=== PATIENT | female | born 2000 | race Two or more races ===

== ENCOUNTER 2020-05-05 20:08 | Emergency (ER) | payer OTHER ==
--- NOTE | 2020-05-05 20:17 | PDOC ---
Attending Attestation - Resident Resident Name: Rozina Greenfield - ED Attending Attestation I have performed the following: I have examined & evaluated the patient, The case was reviewed & discussed with the resident, I agree w/resident's findings & plan - HPI HPI: 05/05/20 23:41 see resident hpi - Physicial Exam PE: 05/05/20 23:42 see resident exam - Critical Care Time Total Critical Care Time: 60 Critical Care Statement: The care of this patient involved high complexity decision making to prevent further life threatening deterioration of the patient's condition and/or to evaluate & treat vital organ system(s) failure or risk of failure. - Medical Decision Making 05/05/20 23:44 19-year-old female with history of cerebral palsy from a long-term care residential/usp facility with vomiting and possible aspiration Due to absent breath sounds on the right side patient was decompressed with a 20-gauge catheter in route by EMS Pneumothorax confirmed with CT scan of the chest CT of the abdomen and pelvis showed multiple areas of dilated bowel with possible small bowel malrotation A 20 Greek chest tube was placed, placement confirmed with chest x-ray Patient is currently saturating 100% on 3 L nasal cannula She will be transferred to [facility] after discussion with in- house surgery due to patient's size as well as for continuity of care due to previous relationship with the other facility Patient's father was contacted as well Discharge - Discharge Information Problems reviewed: Yes Clinical Impression/Diagnosis: Malrotation of intestine, Tension pneumothorax Condition: Improved Disposition: TRANSFER ACUTE CARE/OTHER HOSP - Follow up/Referral - Patient Discharge Instructions - Post Discharge Activity
--- NOTE | 2020-05-05 20:27 | PDOC ---
History of Present Illness - General Stated Complaint: DECOMPRESSION Time Seen by Provider: 05/05/20 20:17 - History of Present Illness Initial Comments: 05/05/20 20:57 19 year old woman from [place] with a history of asthma, chronic constipation,epilepsy, congenital hypotonia, developmental delay/MR, PDA at (s/p coil embolization), Frontal lobe atrophywith septum pellucidum who presents with hypotension and hypoxia after an episode of coffee ground emesis. Upon EMS arrival the patient had decreased breath sounds on the R and the patient was needle decompressed with improvement in saturation and blood pressure. ROS - unable to obtain 2/2 delay PE GENERAL: Awake, alert HEAD: No signs of trauma, normocephalic, atraumatic EYES: EOMI, sclera anicteric, conjunctiva clear ENT: oropharynx clear without exudates. Moist mucosa NECK: Normal ROM, supple LUNGS: No distress, clear to auscultation bilaterally HEART: Regular rate and rhythm, normal S1 and S2, no murmurs, rubs or gallops, peripheral pulses normal and equal bilaterally. ABDOMEN: Soft, nontender, G tube intact, No guarding, no rebound. No masses EXTREMITIES : small and moderately contracted extremities NEUROLOGICAL: unable to assess SKIN: Warm, Dry, normal turgor, no rashes or lesions noted Assessment and Plan 19 year old woman from [place] with a history of asthma, chronic constipation,epilepsy, congenital hypotonia, developmental delay/MR, PDA at (s/p coil embolization), Frontal lobe atrophywith septum pellucidum who presents with hypotension and hypoxia after an episode of coffee ground emesis. Upon arrival patient satting 97 on RA and normotensive. Placed on 2L NC for comfort Needle removed from chest and dressed with 3 way occlusive dressing Patient remaining at 100% O2 CXR: small R apical ptx Dr. Sen from [place] called to recieve update, up to date information relayed. Physician recommends that if transfer necessary prefers [facility] for her care. CT chest: with small to moderate R sided ptx CT abd/pelvis: diffuse colonic distention with possible small bowel malrotation order desk caller surgeon recommends transfer to [facility] pending labs and transfer Patient signed out to resident Dr. Candace Greenfield, PGY2 Emergency Medicine Past History - Medical History Allergies/Adverse Reactions: Allergies Allergy/AdvReac Type Severity Reaction Status Date / Time ceftriaxone Allergy Verified 05/05/20 23:10 cephalexin Allergy Verified 05/05/20 23:10 sulfamethoxazole Allergy Verified 05/05/20 23:10 [From Bactrim] trimethoprim [From Bactrim] Allergy Verified 05/05/20 23:10 ED Treatment Course - LABORATORY CBC & Chemistry Diagram: 05/05/20 21:31 05/05/20 21:31 Discharge - Discharge Information Problems reviewed: Yes Clinical Impression/Diagnosis: Malrotation of intestine, Tension pneumothorax Condition: Improved Disposition: TRANSFER ACUTE CARE/OTHER HOSP - Follow up/Referral - Patient Discharge Instructions - Post Discharge Activity
--- NOTE | 2020-05-05 20:32 | PDOC ---
ED Treatment Course - LABORATORY CBC & Chemistry Diagram: 05/05/20 21:31 05/05/20 21:31 - RADIOLOGY Radiology Studies Ordered: Category Date Time Status CHEST X-RAY PORTABLE* [RAD] Stat Radiology 05/05/20 20:11 Taken Medical Decision Making - Medical Decision Making Tien patients father - [phone] - Been very healthy for the past 6 months. Uses a mask for sleeping (CPAP). - Got a call from nurse who said that all of a sudden the patient had a collapsed lung at [place] and EMS had to needle decompress. - Nurse was vague, had issues in the past with lung issues (Multiple episodes of PNA greater than 1 year ago), been in [place] for a few months. - Has a significant amount of medical history - Not verbal, developmentally delayed. All feeding through G-tube, needs regular nursing for support, 100% dependent on help. - Father's biggest concern is the daughter picking up COVID. Father believes this would be a " sentence" - Can tell when she is not feeling well or cranky or in pain bc she will cry. If she is feeling well she is a "delightful person and truly smiles and likes people" 05/05/20 20:34 Father made aware of potential need for chest tube vs pig tail - Gives oral consent over the phone Surgical Consult: I spoke with Dr. Ac who agrees and believes this would be a very complicated situation given the patients body habitus and medical history. Considering all of her medical care is generally done at [facility] he recommends transferring this patient over the [facility] for definitive tertiary care. 05/05/20 22:04 Transfer process to [facility] being initiated Accepting surgical physician Dr. Oliveira - Dr. Oliveira said considering the patient has a pneumothorax and a needle decompression in the chest he reccommends putting in a chest tube or pigtail in case the patient decompensates on the way. He reports they will need to intubate this patient during any surgical procedure and considering the patient has a needle decompression and will likely be intubated a chest tube is necessary. - 20 armenian chest tube placed under sterille conditions. 05/05/20 23:48 I have called Tien the patients father to obtain consent for transfer and he agrees [facility] is the best place for her to go given that her prior care is at [facility] and this is the best option for continuity of care. - Father also informed about chest tube procedure and was glad to hear her vitals are presently within normal limits and that the patient is resting comfortably on the bed Discharge - Discharge Information Problems reviewed: Yes Clinical Impression/Diagnosis: Malrotation of intestine, Tension pneumothorax Condition: Improved Disposition: TRANSFER ACUTE CARE/OTHER HOSP - Admission No - Follow up/Referral - Patient Discharge Instructions - Post Discharge Activity - Transfer to Acute Care Facility Receiving Facility Name: [facility] Accepting Physician:: Dr. Oliveira Procedures - Chest Tube 4th ICS Hungarian Tube Size(cm): 20(child) Anesthesia: other (0.5% Bupivicaine) Volume(ml): 5 Sterile Draping: Yes Sterile Technique: Yes [place] of Air Kimball: Yes Vaseline Gauze Dressing: Yes Suction: Yes Curved Clamp: Yes Tube Sutured to Skin: Yes Complications: No Post Procedure CXR: Yes
[2020-05-05 21:13] VITALS: TEMP 97.7; BMI 19.8
[2020-05-05 21:46] LABS: BASO % 0.3 % (0-2.0); EOS % 0.1 % (0-4.5); HEMATOCRIT 45.7 % (32.4-45.2); LYMPH % 10.7 % (8-40); MCH 30.2 pg (25.7-33.7); MCHC 32.7 g/dl (32.0-36.0); MEAN CELL VOLUME 92.1 fl (80-96); MEAN PLT VOLUME 7.7 fl (7.5-11.1); MONO % 2.6 % (3.8-10.2); NEUT % 86.3 % (42.8-82.8); PLATELET COUNT 530 K/MM3 (134-434); RBC 4.97 M/mm3 (3.60-5.2); RDW 15.4 % (11.6-15.6); WHITE BLOOD COUNT 8.4 K/mm3 (4.0-10.0)
[2020-05-05 21:54] LABS: INR 1.01 (0.83-1.09); PROTHROMBIN TIME (PATIENT) 11.9 SEC (9.7-13.0)
--- NOTE | 2020-05-05 22:09 | PDOC ---
*Physical Exam - Vital Signs Last Vital Signs Temp Pulse Resp BP Pulse Ox 97.7 F 109 H 17 103/75 100 05/05/20 21:07 05/05/20 21:07 05/05/20 21:07 05/05/20 21:07 05/05/20 21:07 - Physical Exam 05/05/20 22:05 Dr. Oliveira - surgery attending ED Treatment Course - LABORATORY CBC & Chemistry Diagram: 05/05/20 21:31 05/05/20 21:31 - ADDITIONAL ORDERS Additional order review: Laboratory Results 05/05/20 21:31 PT with INR 11.90 INR 1.01 05/05/20 21:31 RBC 4.97 MCV 92.1 MCHC 32.7 RDW 15.4 MPV 7.7 Neutrophils % 86.3 H D Lymphocytes % 10.7 D Monocytes % 2.6 L Eosinophils % 0.1 D Basophils % 0.3
[2020-05-05 22:14] LABS: BILIRUBIN,TOTAL 0.2 mg/dL (0.2-1); BLOOD UREA NITROGEN 19.2 mg/dL (7-18); CALCIUM 10.5 mg/dL (8.5-10.1); CREATININE 0.9 mg/dL (0.55-1.3); POTASSIUM 4.1 mmol/L (3.5-5.1); TOT PROT 8.8 g/dl (6.4-8.2)
[2020-05-05] MEDS ORDERED: BUPIVACAINE HCL/PF 0.5% (5 MG/ML) 30 ML VIAL IJ ONE (22:35)
[2020-05-05] MEDS ORDERED: fentaNYL CITRATE/PF 1,000 MCG/20 ML AMPUL IVPUSH ONE (22:35)
[2020-05-05] MEDS ORDERED: PIPERACILLIN/TAZOB 3.375 GM 3.375 GM in DEXTROSE 5%-WATER - 50 ML IVPB ONE (23:09)
[2020-05-05] MEDS ORDERED: PIPERACILLIN/TAZOB 3.375 GM 3.375 GM/50 ML BAG IVPB ONE (23:44)
[2020-05-06 00:36] VITALS: BP 110/88; PULSE 118
[2020-05-06] MEDS ORDERED: fentaNYL CITRATE/PF 1,000 MCG/20 ML AMPUL IVPUSH ONE (00:41)
--- NOTE | 2020-05-06 10:36 | EKG ---
Test Reason : Blood Pressure : / mmHG Vent. Rate : 115 BPM Atrial Rate : 115 BPM P-R Int : 142 ms QRS Dur : 082 ms QT Int : 342 ms P-R-T Axes : 057 -45 031 degrees QTc Int : 473 ms SINUS TACHYCARDIA LEFT AXIS DEVIATION ABNORMAL ECG NO PREVIOUS ECGS AVAILABLE Confirmed by Ben Wright MD ([id number]) on 05/06/2020 10:36:14 AM Referred By: Confirmed By:Ben Wright MD
== END 2020-05-06 00:54 | disposition short-term general hospital (02) ==
LOC: JER 20:08
PROC: 3E03329 Introduction of Other Anti-infective into Peripheral Vein, Percutaneous Approach (ICD-10-PCS; principal; 2020-05-05)
PROC: 3E033GC Introduction of Other Therapeutic Substance into Peripheral Vein, Percutaneous Approach (ICD-10-PCS; 2020-05-05)
DX: Q43.3 Congenital malformations of intestinal fixation (principal); J93.0 Spontaneous tension pneumothorax
CPT/HCPCS: 36415; 71045-TC-FY; 71250-TC; 74176-TC; 80053; 82550; 83605; 84484; 85025; 85610; 86850; 86900; 86901; 87040; 93005; 93010; 96365; 96375; 99285-25

== ENCOUNTER 2020-12-17 12:51 | Emergency (ER) | payer OTHER ==
[2020-12-17 13:44] VITALS: BMI 24.4
[2020-12-17 14:08] VITALS: TEMP 98
[2020-12-17] MEDS ORDERED: SODIUM CHLORIDE 0.9% 500 ML INFUS.BAG IV ONE ×2 (14:27→20:03)
[2020-12-17 15:48] LABS: BASO % 0.9 % (0-2.0); EOS % 0.9 % (0-4.5); HEMATOCRIT 33.8 % (32.4-45.2); HEMOGLOBIN 11.5 GM/dL (10.7-15.3); LYMPH % 38.6 % (8-40); MCH 31.3 pg (25.7-33.7); MEAN CELL VOLUME 92.1 fl (80-96); MEAN PLT VOLUME 7.1 fl (7.5-11.1); MONO % 8.2 % (3.8-10.2); NEUT % 51.4 % (42.8-82.8); PLATELET COUNT 535 K/MM3 (134-434); RBC 3.67 M/mm3 (3.60-5.2); WHITE BLOOD COUNT 5.2 K/mm3 (4.0-10.0)
[2020-12-17 15:55] LABS: INR 1.09 (0.83-1.09); PROTHROMBIN TIME (PATIENT) 13.2 SEC (9.7-13.0)
[2020-12-17 15:58] LABS: ACTIVATED PTT 36.3 SECONDS (25.2-36.5)
[2020-12-17 16:06] LABS: CHLORIDE 101 mmol/L (98-107); POTASSIUM 3.5 mmol/L (3.5-5.1); SODIUM 138 mmol/L (136-145)
[2020-12-17 16:08] LABS: CALCIUM 8.1 mg/dL (8.5-10.1)
[2020-12-17 16:09] LABS: ALBUMIN 2.5 g/dl (3.4-5.0); ANION GAP 2 MMOL/L (8-16); CO2 35 mmol/L (21-32); GLUCOSE,RANDOM 81 mg/dL (74-106)
[2020-12-17 16:12] LABS: CREATININE 0.3 mg/dL (0.55-1.3); SGOT/AST 16 U/L (15-37); SGPT/ALT 23 U/L (13-61)
[2020-12-17 16:13] LABS: BILIRUBIN,TOTAL 0.2 mg/dL (0.2-1)
[2020-12-17 16:14] LABS: TOT PROT 5.7 g/dl (6.4-8.2)
[2020-12-17 16:15] LABS: ALK PHOS 89 U/L (45-117)
[2020-12-17 16:16] LABS: LDH 99 U/L (84-246)
[2020-12-17 16:35] LABS: EPI CELLS 9 /uL (0-25.1); HYALINE CASTS 0 /uL (0-3.1); PH,URINE >= 9.0 (5.0-8.0); URINE APPEARANCE CLEAR; URINE BACTERIA 53 /uL (0-1359); URINE BILIRUBIN NEGATIVE (NEGATIVE); URINE COLOR YELLOW; URINE GLUCOSE (UA) NEGATIVE (NEGATIVE); URINE KETONE NEGATIVE (NEGATIVE); URINE LEUK ESTERASE NEGATIVE (NEGATIVE); URINE NITRITE NEGATIVE (NEGATIVE); URINE PROTEIN NEGATIVE (NEGATIVE); URINE RBC 33 /uL (0-23.9); URINE WBC 7 /uL (0-25.8)
[2020-12-18 02:24] VITALS: BP 124/82; PULSE 76
== END 2020-12-18 02:35 | disposition home or self-care (01) ==
LOC: JER 12:51
DX: I95.89 Other hypotension (principal); Z20.822 Contact with and (suspected) exposure to COVID-19
CPT/HCPCS: 36415; 71045-TC-FY; 80053; 81003; 82550; 82728; 83605; 83615; 84484; 85025; 85379; 85610; 85730; 86140; 87040; 87086; 87804; 93005; 93010; 99285-25; C9803; U0003

== ENCOUNTER 2023-09-15 09:33 | Emergency (ER) | payer OTHER ==
[2023-09-15 10:09] VITALS: PULSE 95; RESP 20; TEMP 99; BMI 27.4
[2023-09-15] MEDS ORDERED: diphenhydrAMINE HCL 12.5 MG/5 ML UNIT-DOSE CUPS ONE (10:34)
[2023-09-15] MEDS: DIPHENHYDRAMINE HCL 25 MG/10 ML CUP GT ONE ×2 (10:34→10:47)
[2023-09-15 12:00] VITALS: BP 88/64
== END 2023-09-15 13:17 | disposition home or self-care (01) ==
LOC: JER 09:33
PROC: 3E023GC Introduction of Other Therapeutic Substance into Muscle, Percutaneous Approach (ICD-10-PCS; principal; 2023-09-15)
DX: R06.2 Wheezing (principal); L53.9 Erythematous condition, unspecified; T50.Z95A Adverse effect of other vaccines and biological substances, initial encounter; R21 Rash and other nonspecific skin eruption; R22.0 Localized swelling, mass and lump, head
CPT/HCPCS: 93005; 93010; 99284-25

== ENCOUNTER 2024-04-08 22:52 | Emergency (ER) | payer OTHER ==
[2024-04-08 23:26] VITALS: BMI 29.0
[2024-04-09 00:58] VITALS: BP 101/55; PULSE 77; RESP 16; TEMP 97.1
[2024-04-09] MEDS: TRIAMCINOLONE ACET 0.1% CREAM 15 GM TUBE TP SCH (01:31)
== END 2024-04-09 02:16 | disposition home or self-care (01) ==
LOC: JER 22:52
DX: R21 Rash and other nonspecific skin eruption (principal); M25.431 Effusion, right wrist
CPT/HCPCS: 73090-TC-RT-FY; 73110-TC-RT-FY; 99284-25

== ENCOUNTER 2025-06-06 11:19 | Emergency (ER) | payer OTHER ==
[2025-06-06 11:32] VITALS: TEMP 97.5; BMI 21.6
[2025-06-06] MEDS ORDERED: DOXYCYCLINE HYCLATE 100 MG TABLET PO ONE (12:29)
[2025-06-06] MEDS: DOXYCYCLINE HYCLATE 100 MG TABLET PO ONE (12:51)
[2025-06-06 14:19] VITALS: BP 93/57; PULSE 76; RESP 17
== END 2025-06-06 15:00 | disposition home or self-care (01) ==
LOC: JER 11:19
DX: L03.113 Cellulitis of right upper limb (principal)
CPT/HCPCS: 73110-TC-RT-FY; 73130-TC-RT-FY; 93005; 93010; 99284-25